=== PATIENT | male | born 1975 | race Caucasian/White ===

== ENCOUNTER 2024-05-13 00:19 | Emergency (ER) | payer BC, SELFPAY ==
[2024-05-13 00:21] VITALS: BP 147/90
[2024-05-13 01:11] LABS: COVID-19 Antigen Negative (Negative)
--- NOTE | 2024-05-13 01:13 | ED.GENMED ---
History of Present Illness
General
Chief Complaint: Cold/Flu/URI Symptoms
Source: patient
Exam Limitations: none
Time Seen by Provider: 05/13/24 00:49
History of Present Illness
History of Present Illness:
This is a 48 year old male that comes in with multiple complaints. States that his was sick with a cold for about a week and then he started. State that it goes form his head to his chest. States that he started today with a red watery left
eye. Then tonight he started with right ear pain. States that he also had diarrhea and a cough. States that he has a headache. Denies any fever, chills, chest pain, SOB, abd pain, nausea, vomiting, dizziness, urinary burning.
Past History
Past History
ED Past Medical History: Other (Sleep apnea, Tinnitis)
ED Past Surgical History: Other (Upper airway stimulation device (Inspire) for sleep apnea)
Social History
Tobacco: Non-smoker
Alcohol: None
Personal:
Living: with family
Review of Systems
Review of Systems
All Other Systems: ROS reviewed and negative except as documented in HPI and ROS
Constitutional: Denies fever or chills
EENT: Reports other (Right ear pain, left eye red and tearing)
Respiratory: Reports cough; Denies trouble breathing
Cardiac: Reports no symptoms; Denies chest pain
ABD/GI: Reports diarrhea; Denies abdominal pain, nausea or vomiting
: Reports no symptoms
Musculoskeletal: Reports no symptoms
Skin: Reports no symptoms
Neurological: Reports headache; Denies dizzy
Psychiatric: Reports no symptoms
Phy Exam
General Physical Exam
General Presentation: no apparent distress
General age: appears stated age
General Skin: warm and dry
General Habitus: normal
General Mental: alert
General Hydration: appears well hydrated
ENT Exam
ENT Exam: TM's normal, pharynx normal and neck supple
Eye Exam
Eye Exam: EOMI and other (Left conjunctivitis)
Cardiovascular Exam
Cardiovascular Exam: regular rate/rhythm, no edema, no murmur and normal peripheral pulses
Pulmonary Exam
Pulmonary Exam: lungs clear, no respiratory distress, no rales, chest non tender, no crackles, no rhonchi, no wheezing and no cough
Gastrointestinal Exam
Gastrointestinal Exam: normal bowel sounds, non tender, soft, no organomegaly, no pulsatile mass and non distended
Musculoskeletal Exam
Musculoskeletal Exam: full ROM and no edema
Skin Exam
Skin Exam: normal color, warm/dry, no rash and no petechia
Psychiatric Exam
Psychiatric Exam: normal mood/affect
Course
Orders/Labs/Results
Orders:
Orders
05/13/24 00:31
COVID-19 Antigen Urgent
Source: Nasal Swab
05/13/24 01:07
CR Chest - 2 Views Urgent
Comment:
Reason For Exam: cough,
05/13/24 01:12
Ciprofloxacin HCl [Ciloxan 0.3% Ophthalmic Solution] See Dose Instructions OPHTH NOW STA
05/13/24 01:13
Acetaminophen [Tylenol] 1,000 mg PO NOW STA
05/13/24 01:20
Pseudoephedrine Extended Rel. [Sudafed 12 Hour (Extended Release)] 120 mg PO NOW STA
Vital Signs
Initial and Last Documented VS:
Initial Vital Signs
Temp Pulse Resp BP Pulse Ox
98.6 F 93 18 147/90 96
05/13/24 00:21 05/13/24 00:21 05/13/24 00:21 05/13/24 00:21 05/13/24 00:21
Last Documented Vital Signs
Temp Pulse Resp BP Pulse Ox
98.6 F 93 18 147/90 96
05/13/24 00:21 05/13/24 00:21 05/13/24 00:21 05/13/24 00:21 05/13/24 00:21
MDM/Problems Addressed
Differential Diagnosis Includes:
Viral syndrome. conjunctivitis
MDM/Problems Addressed:
This is a 48 year old male that comes in with c/o right ear pain, left eye redness and drainage and congestion. states that he also has diarrhea. States that is was sick for a week and then started.
Will test for COVID. chest x-ray, Medicate for conjunctivitis, a decongestant, and Tylenol as patient took Naproxen at home.
Back into see patient. Explained that he is negative for COVID and his chest x-ray is normal. This is most likely viral. Patient can continue the drops for his eye every 2 hours while awake for 2 days and then 1 drop every 4 hours while awake for 5
days. patient to use Tylenol 1000mg every 6 hours for pain and Alternate with Ibuprofen 600mg every 6 hours for pain. Patient can continue with Sudafed to help dry up his congestion. patient to follow up with the family doctor. return with any
concerns.
Chronic conditions affecting care:
NA
Acute Exacerbation and/or Progression of Chronic Illness:
NA
*Radiology
Radiology exam reviewed: preliminary read by ED provider (Chest- Inspire device for sleep apnea noted. No other acute process )
*Pulse Oximetry
Patient hypoxic: no
*EKG
Interpreted by ED Provider?: NA
Rate: EKG- N/A
*Change Control Coordinator Interpretation
Rate: Change Control Coordinator- N/A
*Critical Care Note
Total Time (30-74mins, 75-104mins- exclusive of procedures): Not Applicable
ED Attending Note
-
Portions of this chart may have been created with voice recognition software.� Occasional wrong word or��sound alike� substitutions may have occurred due to the inherent limitations of voice recognition software.
Discharge Plan
Departure
Patient Disposition: Home (Routine Discharge)
Date of Disposition: 05/13/24
Time of Disposition: 02:05
Patient with high blood pressure during this ER visit?: Yes
Condition: Good
Covid-19: Negative COVID-19
Discharge Problem:
Acute viral syndrome
Instructions: Viral Syndrome (DC), BLOOD PRESSURE
Referrals:
Curtis Ann MD [Family Provider] - Follow up in 5-7 days
Activity Restrictions/Additional Instructions:
As discussed, you are negative for COVID and your chest x-ray is normal. This is most likely a viral illness. Please increase your water intake to 8-8oz glasses daily. You may use Sudafed to help dry up the secretions and decrease the ear pressure.
Please use Tylenol 1000mg every 6 hours for pain and alternate with Ibuprofen 600mg every 6 hours with food. So if you take the Tylenol 1000mg at 9am the Ibuprofen 600mg at 12 noon then Tylenol at 3pm and Ibuprofen at 6pm. The eye drops are 1 drop
to the left eye every 2 hours while awake for 2 days and then 1 drop every 4 hours while awake for 5 days. Please follow up with the family doctor for further evaluation. IF YOU HAVE ANY OTHER CONCERNS PLEASE RETURN TO THE EMERGENCY ROOM.
Interventions
Interventions:
*Risk Screen - Suicide Last Done: 05/13/24 00:21
*General Assessment Last Done: 05/13/24 00:21
*Neglect/Abuse Screening Last Done: 05/13/24 00:21
ED- Fall Risk Assessment Last Done: 05/13/24 00:21
*ED COVID-19 Vaccine History Last Done: 05/13/24 00:28
ED- Pulmonary Assessment Last Done: 05/13/24 01:22
Discharge Date and Time
Print Language: BRITISH
[2024-05-13] MEDS: SUDAFED 12 HOUR (EXTENDED RELEASE) 120 MG PO (01:32)
[2024-05-13] MEDS: TYLENOL 1000 MG PO (01:33)
[2024-05-13] MEDS: CILOXAN 0.3% OPHTHALMIC SOLUTION 1 DROP OPHTH (01:35)
== END 2024-05-13 02:16 | disposition home or self-care (01) ==
LOC: EMR 00:19
PROVIDERS: EMERGENCY PHYSICIAN Student in an Organized Health Care Education/Training Program; FAMILY PHYSICIAN Internal Medicine
DX: B34.9 Viral infection, unspecified (principal); H92.01 Otalgia, right ear; R19.7 Diarrhea, unspecified; R51.9 Headache, unspecified; H10.9 Unspecified conjunctivitis; R05.9 Cough, unspecified; Z11.52 Encounter for screening for COVID-19; R03.0 Elevated blood-pressure reading, without diagnosis of hypertension; G47.30 Sleep apnea, unspecified
CPT/HCPCS: 99283; 71046; 87811